=== PATIENT | female | born 1975 | race Hispanic/Latino ===

== ENCOUNTER 2024-07-12 11:25 | Emergency (ER) | payer SELFPAY ==
[~2024-07-12] VITALS: Ht 170.2 cm; Wt 108.9 kg
[2024-07-12 11:45] VITALS: PULSE 76; RESP 18; TEMP 98.2; O2SAT 98
[2024-07-12] MEDS ORDERED: KETOROLAC TROME10 MG PO (13:24)
[2024-07-12] MEDS ORDERED: ULTRAM 50MG50 MG PO (13:50)
== END 2024-07-12 13:20 | disposition home or self-care (01) ==
LOC: ER 11:40
DX: R07.89 Other chest pain (principal); S60.222A Contusion of left hand, initial encounter; V43.62XA Car passenger injured in collision with other type car in traffic accident, initial encounter; Y92.488 Other paved roadways as the place of occurrence of the external cause; E11.9 Type 2 diabetes mellitus without complications; R94.31 Abnormal electrocardiogram [ECG] [EKG]
CPT/HCPCS: 71046; 93005; 99283